=== PATIENT | female | born 1980 | race Caucasian/White ===

== ENCOUNTER → 2020-05-06 | Outpatient (CLI) | payer BC ==
[2020-05-06 15:19] LABS: HCT 44.3 % (34.0-46.0); HGB 14.2 gm/dL (11.4-16.0); MCH 29.2 pg (25.0-35.0); MCHC 32.2 g/dL (31.0-37.0); MCV 90.6 fL (80.0-100.0); Mean Platelet Volume 7.5; Platelet Count 340 k/uL (150-450); RBC 4.88 m/uL (3.80-5.40); RDW 12.7 % (11.5-15.5); WBC 7.5 k/uL (3.8-10.6)
[2020-05-06 20:03] LABS: ALT 23 U/L (8-44); AST 23 U/L (13-35); African American GFR (CKD) 94.7 (60.0-200.0); Albumin/Globulin Ratio 1.87 (1.60-3.17); Alkaline Phosphatase 61 U/L (41-126); BUN/Creat Ratio 12.22 Ratio (12.00-20.00); Calcium 9.5 mg/dL (8.7-10.3); Carbon Dioxide 23.4 mmol/L (21.6-31.8); Chloride 104 mmol/L (96-109); Globulin 2.3 g/dL (1.6-3.3); Glucose 85 mg/dL (70-110); Non-African American GFR(CKD) 81.7 (60.0-200.0); Potassium 4.6 mmol/L (3.5-5.5); Sodium 137 mmol/L (135-145); Total Bilirubin 0.4 mg/dL (0.2-1.2); Total Protein 6.6 g/dL (6.2-8.2)
[2020-05-06 20:12] LABS: Prolactin 5.9 ng/mL (2.8-29.2)
[2020-05-06 20:22] LABS: Hemoglobin A1C 5.3 % (4.0-6.0)
[2020-05-06 20:48] LABS: Vitamin B12 >4000.0 pg/mL (211-911)
== END | disposition home or self-care (01) ==
LOC: LABWHC1 10:02
PROVIDERS: ATTEND Internal Medicine Endocrinology, Diabetes & Metabolism
DX: E55.9 Vitamin D deficiency, unspecified (principal); R53.83 Other fatigue; E65 Localized adiposity
CPT/HCPCS: 36415; 80053; 82024; 82306; 82533; 82607; 83036; 84146; 85027

== ENCOUNTER → 2020-07-23 | Outpatient (CLI) | payer BC ==
[2020-07-23 15:09] LABS: African American GFR (CKD) 109.2 (60.0-200.0); Albumin 4.1 g/dL (3.80-4.90); Albumin/Globulin Ratio 1.86 (1.60-3.17); Anion Gap 6.1 mmol/L (4.00-12.00); BUN/Creat Ratio 12.5 Ratio (12.00-20.00); Calcium 9.4 mg/dL (8.7-10.3); Carbon Dioxide 26.9 mmol/L (21.6-31.8); Globulin 2.2 g/dL (1.6-3.3); Non-African American GFR(CKD) 94.2 (60.0-200.0); Potassium 4.4 mmol/L (3.5-5.5); Total Bilirubin 0.4 mg/dL (0.2-1.2); Total Protein 6.3 g/dL (6.2-8.2)
[2020-07-23 15:15] LABS: T4, Free (Free Thyroxine) 1.1 ng/dL (0.80-1.80)
== END | disposition home or self-care (01) ==
LOC: LABWHC1 08:58
PROVIDERS: ATTEND Internal Medicine Endocrinology, Diabetes & Metabolism
DX: E03.8 Other specified hypothyroidism (principal); E55.9 Vitamin D deficiency, unspecified; E53.8 Deficiency of other specified B group vitamins; R53.83 Other fatigue
CPT/HCPCS: 36415; 80053; 82306; 82607; 84439; 84443

== ENCOUNTER → 2021-02-18 | Outpatient (CLI) | payer BC | END | disposition home or self-care (01) | LOC: LABWHC1 08:53 | PROVIDERS: ATTEND Internal Medicine Endocrinology, Diabetes & Metabolism | DX: E03.8 Other specified hypothyroidism (principal); E55.9 Vitamin D deficiency, unspecified; E53.8 Deficiency of other specified B group vitamins | CPT/HCPCS: 36415; 82306; 82607; 84443 ==

== ENCOUNTER → 2021-06-08 | Outpatient (CLI) | payer BC | END | disposition home or self-care (01) | LOC: LABWHC1 08:49 | PROVIDERS: ATTEND Internal Medicine Endocrinology, Diabetes & Metabolism | DX: E03.8 Other specified hypothyroidism (principal); E55.9 Vitamin D deficiency, unspecified; E53.8 Deficiency of other specified B group vitamins | CPT/HCPCS: 36415; 82306; 82607; 84443 ==

== ENCOUNTER → 2021-10-22 | Outpatient (CLI) | payer BC | END | disposition home or self-care (01) | LOC: LABWHC1 11:44 | PROVIDERS: ATTEND Internal Medicine Endocrinology, Diabetes & Metabolism | DX: E03.8 Other specified hypothyroidism (principal); E55.9 Vitamin D deficiency, unspecified; E53.8 Deficiency of other specified B group vitamins | CPT/HCPCS: 36415; 82306; 82607; 84443 ==